=== PATIENT | female | born 1950 | race Caucasian/White ===

== ENCOUNTER → 2017-02-19 | Outpatient (CLI) | payer OTHER | LOC: BRMIMAGING 10:36 | PROVIDERS: ATTEND Physician Assistant | DX: M25.551 Pain in right hip (principal) | CPT/HCPCS: 73502-PO ==

== ENCOUNTER 2017-05-27 10:22 | Observation (INO) | payer OTHER ==
[2017-06-17] MEDS ORDERED: ROPIVACAINE 0.2% 80 MG, EPINEPHrine 0.2 MG, KETOROLAC TROMETHAMINE 30 MG in SYRINGE 0 ML IU ONE (06:00)
[2017-06-17] MEDS ORDERED: TRANEXAMIC ACID 3,000 MG in NS 50 ML IRR ONE (06:00)
--- NOTE | 2017-06-17 07:14 | PDHPUP ---
History & Physical Update H&P update statement: This history and physical update is based on an assessment of the patient which was completed after admission or registration (within 24 hours), but prior to the surgery/procedure. H&P update: H&P reviewed & patient examined, no change in patient's condition since H&P completed
[2017-06-17] MEDS ORDERED: TRANEXAMIC ACID 3,000 MG/50 ML BAG IRR ONE (07:33)
[2017-06-17] MEDS ORDERED: VANCOMYCIN 1 GM VIAL ONE (07:33)
[2017-06-17] MEDS ORDERED: ceFAZolin 2 GM/SWFI 2 GM/20 ML SYR IVP ONE (07:47)
[2017-06-17] MEDS ORDERED: ACETAMINOPHEN 325 MG TAB PO ONE (07:47)
[2017-06-17] MEDS ORDERED: DEXAMETHASONE 4 MG/ML VIAL IVP ONE (07:47)
[2017-06-17] MEDS ORDERED: FAMOTIDINE 20 MG TAB PO ONE (07:47)
[2017-06-17] MEDS ORDERED: LIDOCAINE 1% 2 ML INJ ID PRN (07:49)
[2017-06-17] MEDS ORDERED: LR 1,000 ML IV ONE (07:49)
[2017-06-17] MEDS ORDERED: PROPRANOLOL HCL 20 MG TAB PO PRN (08:33)
[2017-06-17] MEDS ORDERED: MIDAZOLAM 2 MG/2 ML VIAL IVP ONE (08:47)
--- NOTE | 2017-06-17 08:48 | PDANEPAE ---
ANE History of Present Illness left knee OA ANE Past Medical History - Cardiovascular History Hx Hypertension: No Hx Arrhythmias: No Hx Chest Pain: No Hx Coronary Artery / Peripheral Vascular Disease: No Hx CHF / Valvular Disease: No Hx Palpitations: No - Pulmonary History Hx COPD: No Hx Asthma/Reactive Airway Disease: No Hx Recent Upper Respiratory Infection: No Hx Oxygen in Use at Home: No Hx Sleep Apnea: No Sleep Apnea Screening Result - Last Documented: Negative - Neurologic History Hx Cerebrovascular Accident: No Hx Seizures: No Hx Dementia: No - Endocrine History Hx Diabetes: No - Renal History Hx Renal Disorders: No - Liver History Hx Hepatic Disorders: No - Neurological & Psychiatric Hx Hx Neurological and Psychiatric Disorders: Yes Neurological / Psychiatric History Comment: anxiety,depression - Cancer History Hx Cancer: No - Congenital Disorder History Hx Congenital Disorders: No - GI History Hx Gastrointestinal Disorders: No - Other Health History Other Health History: none - Chronic Pain History Chronic Pain: Yes (lower back) - Surgical History Prior Surgeries: R partial knee replacement. plantar fasciitis 2017 ANE Review of Systems Review of systems is: negative Review of Systems: - Exercise capacity METS (RN): 4 METS ANE Patient History - Allergies Allergies/Adverse Reactions: Penicillins Allergy (Verified 06/17/17 07:51) Hives - Home Medications Home medications: home medication list seen and reviewed Home Medications: Acetaminophen/ASA/Caffeine [Excedrin Tablet (*)] 1 each PO DAILY PRN 05/21/17 [ Last Taken 06/03/17] Alendronate Sodium [Fosamax 70 MG (*)] 70 mg PO CHAU@0700 05/21/17 [Last Taken ] Atorvastatin Calcium [Lipitor 40 mg (*)] 40 mg PO HS 05/21/17 [Last Taken 22:00] Citalopram [CeleXA] 20 mg PO HS 05/21/17 [Last Taken 06/16/17 22:00] Mirtazapine 3.75 mg PO HS 05/21/17 [Last Taken 06/16/17 22:00] Multivitamins [Multivitamin (*)] 1 each PO DAILY 05/21/17 [Last Taken 06/03/17] Naproxen Sodium [Aleve 220 MG (*)] 220 mg PO BID PRN 05/21/17 [Last Taken ] Propranolol HCl [Inderal 20mg (*)] 20 mg PO DAILY PRN 05/21/17 [Last Taken 06/03] buPROPion [Wellbutrin 75mg (*)] 150 mg PO DAILY 05/21/17 [Last Taken 06/16/17 08 :00] - NPO status NPO Since - Liquids (Date): 06/16/17 NPO Since - Liquids (Time): 22:00 NPO Since - Solids (Date): 06/16/17 NPO Since - Solids (Time): 20:00 - Anes Hx Anes Hx: post operative nausea - Smoking Hx Smoking Status: Never smoked - Family Anes Hx Family Hx Anesthesia Complications: none ANE Labs/Vital Signs - Vital Signs Blood Pressure: 134/80 Heart Rate: 73 Respiratory Rate: 16 O2 Sat (%): 91 Height: 160.02 cm Weight: 54.431 kg ANE Physical Exam - Airway Neck exam: FROM Mallampati Score: Class 2 Mouth exam: normal dental/mouth exam - Pulmonary Pulmonary: no respiratory distress - Cardiovascular Cardiovascular: regular rate and rhythym - ASA Status ASA Status: II ANE Anesthesia Plan Anesthesia Plan: spinal Regional Anesthesia: single shot NB, adductor canal FNB
[2017-06-17] MEDS ORDERED: BUPIVACAINE 0.5% 30 ML SDV ONE (08:51)
[2017-06-17] MEDS ORDERED: PROPOFOL/EMULSION 500 MG/50 ML BOTTLE IV ONE (08:54)
[2017-06-17] MEDS ORDERED: LIDOCAINE 2% 5 ML SDV ONE (08:56)
[2017-06-17] MEDS ORDERED: fentaNYL 100 MCG/2 ML INJ ONE (08:57)
[2017-06-17] MEDS ORDERED: ONDANSETRON 4 MG/2 ML VIAL ONE (09:31)
[2017-06-17] MEDS ORDERED: DEXAMETHASONE 4 MG/ML VIAL ONE (09:31)
[2017-06-17] MEDS ORDERED: DIPHENOXYLATE/ATROPINE LOMOTIL 1 TAB PO PRN (09:35)
[2017-06-17] MEDS ORDERED: PROMETHAZINE HCL 25 MG SUPPR PR PRN (09:35)
[2017-06-17] MEDS ORDERED: LACTULOSE 20 GM/30 ML UDCUP PO PRN (09:35)
[2017-06-17] MEDS ORDERED: TEMAZEPAM 15 MG CAP PO PRN (09:35)
[2017-06-17] MEDS ORDERED: PROMETHAZINE HCL 25 MG/ML INJ IVP PRN ×2 (09:35→09:55)
[2017-06-17] MEDS ORDERED: diphenhydrAMINE 25 MG CAP PO PRN (09:35)
[2017-06-17] MEDS ORDERED: BISACODYL 10 MG SUPP PR PRN (09:35)
[2017-06-17] MEDS ORDERED: ONDANSETRON DISINTEGRATING 4 MG TAB PO PRN (09:35)
[2017-06-17] MEDS ORDERED: MAGNESIUM HYDROXIDE 30 ML UDCUP PO PRN (09:35)
[2017-06-17] MEDS ORDERED: POLYETHYLENE GLYCOL 3350 17 GM PKT PO PRN (09:35)
[2017-06-17] MEDS ORDERED: ONDANSETRON 4 MG/2 ML VIAL IVP PRN ×2 (09:35→09:55)
[2017-06-17] MEDS ORDERED: fentaNYL 100 MCG/2 ML INJ IVP PRN (09:55)
[2017-06-17] MEDS ORDERED: ACETAMINOPHEN 500 MG TAB PO PRN (09:55)
[2017-06-17] MEDS ORDERED: ALBUTEROL 3 ML DEYVIAL IH PRN (09:55)
[2017-06-17] MEDS ORDERED: HYDROCODONE/APAP 5/325 TAB PO PRN (09:55)
[2017-06-17] MEDS ORDERED: HYDROmorphONE/DILAUDID 1 MG/ML INJ IVP PRN (09:55)
[2017-06-17] MEDS ORDERED: NALOXONE HCL 0.4 MG/ML INJ IVP PRN (09:55)
[2017-06-17] MEDS ORDERED: LR 500 ML IV PRN (09:55)
[2017-06-17] MEDS ORDERED: OXYCODONE/APAP 5/325 TAB PO PRN (09:55)
[2017-06-17] MEDS ORDERED: LR 1,000 ML IV SCH (10:00)
--- NOTE | 2017-06-17 10:03 | POSTANESTH ---
Post Anesthetic Evaluation Cardiovascular Status: Normal, Stable Respiratory Status: Normal, Stable Level of Consciousness/Mental Status: Can Participate in Eval Pain Control: Adequate, Prn Tx Ordered Nausea/Vomiting Control: Adequate, Prn Tx Ordered Complications Possibly Related to Anesthesia: None Noted
--- NOTE | 2017-06-17 10:14 | POSTOPPROG ---
Post Op Note Date of Operation: 06/17/17 Surgeon: Marcelina Rosado Marketing Project Manager: charlee rosado Anesthesiologist: dr. cortes Anesthesia: Spinal, Other (Specify) (adductor canal block) Pre-op Diagnosis: left knee PA OF Post-op Diagnosis: same Indication: left knee pain due to OA that failed conservative measures Procedure: L PF partial knee arthroplasty Findings: severe PF OA Inf/Abcess present in the surg proc area at time of surgery?: No EBL: 50-100
[2017-06-17] MEDS ORDERED: HYDROmorphONE/DILAUDID 1 MG/ML INJ ONE (10:56)
[2017-06-17] MEDS ORDERED: ACETAMINOPHEN 325 MG TAB ONE (12:05)
[2017-06-17] MEDS: ACETAMINOPHEN 325 MG TAB PO SCH ×2 (12:18→17:21)
[2017-06-17] MEDS: CYCLOBENZAPRINE 10 MG TAB PO PRN (14:49)
[2017-06-17] MEDS: oxyCODONE IR 5 MG TAB PO PRN ×3 (14:50→22:17)
[2017-06-17] MEDS: ceFAZolin 2 GM/DEXTROSE 100 ML IV SCH (17:22)
[2017-06-17] MEDS: SENNOSIDES/DOCUSATE SODIUM TAB PO SCH (20:02)
[2017-06-17] MEDS: DOXYCYCLINE HYCLATE 100 MG CAP/TAB PO SCH (20:03)
[2017-06-17] MEDS: ASPIRIN 81 MG CHEWABLE TAB PO SCH (20:03)
[2017-06-17] MEDS: FAMOTIDINE 20 MG TAB PO SCH (20:03)
[2017-06-17] MEDS ORDERED: MIRTAZAPINE 3.75 MG PO SCH (21:00)
[2017-06-17] MEDS ORDERED: MIRTAZAPINE 15 MG TAB PO SCH (21:00)
[2017-06-17] MEDS ORDERED: ATORVASTATIN CALCIUM 40 MG TAB PO SCH (21:00)
[2017-06-17] MEDS ORDERED: CITALOPRAM 20 MG TAB PO SCH (21:00)
[2017-06-17] MEDS ORDERED: OSELTAMIVIR PHOSPHATE 75 MG CAP PO SCH (21:00)
[2017-06-18] MEDS: ACETAMINOPHEN 325 MG TAB PO SCH ×3 (01:10→11:08)
[2017-06-18] MEDS: ceFAZolin 2 GM/DEXTROSE 100 ML IV SCH (01:10)
[2017-06-18] MEDS: oxyCODONE IR 5 MG TAB PO PRN ×2 (02:05→07:55)
[2017-06-18 07:46] VITALS: BP 112/67; PULSE 60; RESP 16; TEMP 97.6; O2SAT 94
[2017-06-18] MEDS: ASPIRIN 81 MG CHEWABLE TAB PO SCH (07:56)
[2017-06-18] MEDS: DOXYCYCLINE HYCLATE 100 MG CAP/TAB PO SCH (07:56)
[2017-06-18] MEDS: SENNOSIDES/DOCUSATE SODIUM TAB PO SCH (07:56)
[2017-06-18] MEDS: CYCLOBENZAPRINE 10 MG TAB PO PRN (07:56)
[2017-06-18] MEDS: FAMOTIDINE 20 MG TAB PO SCH (07:57)
--- NOTE | 2017-06-18 08:41 | SOAPPROG ---
SOAP Progress Note Assessment/Plan: Assessment: Patient is doing well POD 1 s/p L PKA Pain management: pain is well controlled on oral pain meds. VTE ppx: recommend aspirin 81mg BID for 4 weeks, cont ARIEL and SCDs Anemia: level is expected initially postop. Asymptomatic. Continue to monitor D/c planning: d/c to home today pending release from PT Plan: 06/18/17 08:40 Subjective: Zoraida is doing well today, denies SOB, chest and N/V. Objective: Vital Signs Temp Pulse Resp BP Pulse Ox 36.4 C 60 16 112/67 94 06/18/17 07:46 06/18/17 07:46 06/18/17 07:46 06/18/17 07:46 06/18/17 07:46 Laboratory Results 06/18/17 05:08 06/17/17 06/18/17 06/19/17 05:59 05:59 05:59 Intake Total 2009 Output Total 1840 Balance 170 LLE: incision dressing is clean and dry, NVI, +pf/df ICD10 Worksheet Patient Problems: Problems Problem Status Onset Primary localized osteoarthritis of left knee Acute
[2017-06-18] MEDS ORDERED: buPROPion XL 150 MG TAB PO SCH ×2 (09:00)
[2017-06-18] MEDS ORDERED: buPROPion 75 MG TAB PO SCH (09:00)
--- NOTE | 2017-06-18 09:58 | GDS ---
[f rep st] DISCHARGE SUMMARY ADMISSION DIAGNOSIS: Left knee osteoarthritis. DISCHARGE DIAGNOSIS: Left knee osteoarthritis. PROCEDURE: Left partial knee arthroplasty patellofemoral compartment, robot-assisted. VTE PROPHYLAXIS: Aspirin 81 mg twice daily for 4 weeks recommended. BRIEF DESCRIPTION OF HOSPITAL STAY: Patient was admitted for an elective joint arthroplasty. The pa yadira tolerated the procedure well and has passed physical therapy. The patient was given appropriat e antibiotic prophylaxis and venous thromboembolism prophylaxis. The patient's pain was well control led on oral pain medication, patient was holding down food, and had urinated. Decision was made to d ischarge the patient. The patient was given post-operative prescriptions pre-operatively. PLAN: Please follow up as scheduled in Dr. Jimenez's office on July 09 at 9:15 a.m. /[id number]/MODL
--- NOTE | 2017-06-18 12:14 | ASDISCHSUM ---
Discharge Information Plan Status:Home with No Needs Medically Cleared to Leave: Discharge Date:06/18/2017 11:35 AM CM D/C Disposition:Home, Routine, Self-Care ADT D/C Disposition:Home, Routine, Self-Care Projected Discharge Date:06/18/2017 11:35 AM Transportation at D/C: Discharge Delay Reason: Follow-Up Date:06/18/2017 11:35 AM Discharge Slot: Final Diagnosis: Placement Information Patient Contact Information Contact Name:FRANCY Relationship: Address: Work Phone: City: [facility] Phone: State/Zip Code: Email: Financial Information Financial Class: Primary Plan Desc:MEDICARE OUTPATIENT Primary Plan Number:[id number] Secondary Plan Desc:JOE Secondary Plan Number:[id number] 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 She has scheduled physical therapy in an outpatient setting. Zoraida has a cane, walker, and is looking to obtain a toilet seat raiser. She has seen the online video and knows to fill her medication prior to surgery. Zoraida scored a 10 on the RAPT scale, meaning she should discharge directly home. Date Signed: 06/09/2017 03:10 PM Electronically Signed By:Carmenza Carias Intervention Information Intervention Type:*Incorrect Registration Date of Service:06/17/2017 03:28 PM Patient Type:Inpatient Staff Member:BEVERLY Deal Susan Hours: Discipline: Severity: Comment: Intervention Type:*RAFA-Signed Date of Service:06/18/2017 09:49 AM Patient Type:Observation Staff Member:Carmenza Carias Hours: Discipline: Severity: Comment:
--- NOTE | 2017-06-18 14:54 | GOP ---
[f rep st] OPERATIVE REPORT DATE OF OPERATION: 06/17/2017 SURGEON: Glenny Jimenez MD POSTAL WORKER: ALEXANDRA Guzman ANESTHESIA: General. PREOPERATIVE DIAGNOSIS: Left patellofemoral osteoarthritis. POSTOPERATIVE DIAGNOSIS: Left patellofemoral osteoarthritis. PROCEDURE PERFORMED: Left patellofemoral arthroplasty with computer navigation and robotic assist. FINDINGS: ESTIMATED BLOOD LOSS: 30 cc. INDICATIONS: The patient is a 67-year-old female with a left patellofemoral osteoarthritis, who has failed nonoperative measures. Risks and benefits of operative and nonoperative intervention were discussed with the patient, and the patient wished to proceed with operative intervention. Informed consent was obtained. DESCRIPTION OF PROCEDURE: The patient was identified in the preoperative holding area. Her left lower extremity was marked. She was then brought to the operating room. After induction of anesthesia, she was prepped and draped in the usual sterile fashion. A time-out was taken, confirming the patient, laterality, the procedure, allergies, and antibiotic status. Tourniquet was placed on the left thigh. It was inflated for a total of 18 minutes. Incision was made from the tibial tuberosity 2 cm proximal to the superior pole of the patella. I made a medial arthrotomy, taking care to avoid cutting into the meniscus. 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 The patella was resurfaced by hand, measured to be a size 29. This was drilled and protected. We then placed 2 pins in the lateral aspect of the femur. A checkpoint was placed and removed at the conclusion of the case. We then mapped out the femur with computer navigation. Robotic arm was used to bur a footprint for a size 2 trochlear component. We then took the patient through a trial range of motion with trial components. This gave excellent fit. We then removed. The incision was copiously irrigated. Implants were cemented in place. The patient had the tourniquet released and the bleeding was stopped with electrocautery. Incision was closed in layers. The patient received a sterile dressing. The patient was awakened and brought to PACU in good condition with a well- perfused limb. The plan is for the patient to be weightbearing as tolerated. /[id number]/MODL MTDD
== END 2017-06-18 11:35 | disposition home or self-care (01) ==
LOC: UNDOADMIN 10:22 → F3N 10:22 → INTOOBSV 06-17 07:20 → F3N 06-17 07:20
PROVIDERS: ADMIT Orthopaedic Surgery; ATTEND Orthopaedic Surgery
PROC: 0QRF0JZ Replacement of Left Patella with Synthetic Substitute, Open Approach (ICD-10-PCS; principal; 2017-06-17 09:15)
DX: M17.12 Unilateral primary osteoarthritis, left knee (principal)
CPT/HCPCS: 27438; 73560; 97116; 97161; 97165; C1713; C1776; G8978; G8979; G8987; G8988; G8989; J0171; J0690; J1100; J1170; J1885; J2250; J2405; J2704; J2795; J3010; J3370

== ENCOUNTER → 2017-05-27 | Outpatient (CLI) | payer OTHER | LOC: FIMAGING 10:22 | PROVIDERS: ATTEND Orthopaedic Surgery | DX: Z01.818 Encounter for other preprocedural examination (principal); M17.12 Unilateral primary osteoarthritis, left knee ==

== ENCOUNTER → 2017-12-22 | Outpatient (CLI) | payer OTHER | LOC: BRMIMAGING 13:33 | PROVIDERS: ATTEND Physician Assistant | DX: Z12.31 Encounter for screening mammogram for malignant neoplasm of breast (principal) ==